=== PATIENT | female | born 1980 | race African-American/Black ===

== ENCOUNTER 2021-10-22 18:39 | Emergency (ER) | payer OTHER ==
[~2021-10-22] VITALS: Ht 175.3 cm; Wt 83.0 kg
[2021-10-22] MEDS ORDERED: NAPR-1176 MT (23:08)
[2021-10-22 23:20] VITALS: BP 129/90
== END 2021-10-22 23:32 | disposition home or self-care (01) ==
LOC: ER 18:39
DX: S61.411A Laceration without foreign body of right hand, initial encounter (principal); I10 Essential (primary) hypertension; Z79.899 Other long term (current) drug therapy; W45.8XXA Other foreign body or object entering through skin, initial encounter; Y93.89 Activity, other specified; Y92.89 Other specified places as the place of occurrence of the external cause; Y99.8 Other external cause status
CPT/HCPCS: 12001; 73130; 99283